=== PATIENT | female | born 1990 | race Caucasian/White ===

== ENCOUNTER → 2016-10-29 | Outpatient (REF) | payer BC ==
[~2016-10-29] MED LIST: ACET50TA PO; MOTR200T44 PO; PREN1TAB11 PO
== END ==
LOC: M LAB REF 17:09
PROVIDERS: ATTEND Physician Assistant
DX: Z00.00 Encounter for general adult medical examination without abnormal findings (principal); Z23 Encounter for immunization

== ENCOUNTER → 2017-05-19 | Outpatient (REF) | payer BC | LOC: M LAB REF 09:35 | DX: J02.9 Acute pharyngitis, unspecified (principal) | CPT/HCPCS: 87081 ==

== ENCOUNTER 2020-04-03 22:37 | Emergency (ER) | payer BC, OTHER ==
[~2020-04-03] VITALS: Ht 157.5 cm; Wt 82.3 kg
[~2020-04-03 22:37] MED LIST changes: -ACET50TA PO; +MAPA500T2 PO
[2020-04-04 00:11] LABS: BASO % 0.8 % (0.0-1.0); EOS # 0.2 10^3/uL (0.0-0.5); EOS % 3.6 % (0.0-3.0); HEMATOCRIT 39.1 % (36.0-47.0); HEMOGLOBIN 12.6 g/dl (12.0-15.5); MEAN CORPUSCULAR HEMOGLOBIN 30.7 pg (27.0-33.0); MEAN CORPUSCULAR HGB CONC 32.2 g/dl (32.0-36.5); MEAN CORPUSCULAR VOLUME 95.4 fl (80.0-96.0); MONO # 0.3 10^3/uL (0.0-0.8); MONO % 6.5 % (0.0-5.0); NEUTROPHILS # 3.7 10^3/uL (1.5-8.5); NEUTROPHILS % 69.2 % (36.0-66.0); PLATELET COUNT, AUTOMATED 220 10^3/uL (150-450); WHITE BLOOD COUNT 5.3 10^3/uL (4.0-10.0)
[2020-04-04 00:30] VITALS: BP 118/68
[2020-04-04 00:30] LABS: BLOOD UREA NITROGEN 11 MG/DL (7-18); CALCIUM LEVEL 9.1 MG/DL (8.5-10.1); CARBON DIOXIDE LEVEL 30 MEQ/L (21-32); CHLORIDE LEVEL 108 MEQ/L (98-107); CK-MB VALUE MASS < 1.0 NG/ML (<3.6); CPK CREATINE PHOSPHOKINASE 47 U/L (26-192); CREATININE FOR GFR 0.75 MG/DL (0.55-1.30); GLOMERULAR FILTRATION RATE > 60.0 (>60); GLUCOSE, FASTING 126 MG/DL (70-100); HCG, SERUM QUANTITATIVE < 1.0 MIU/ML; MB/CK RELATIVE INDEX 2.13 (< OR =4); POTASSIUM SERUM 4.2 MEQ/L (3.5-5.1); SODIUM LEVEL 142 MEQ/L (136-145); TROPONIN I < 0.02 NG/ML (< 0.10)
--- NOTE | 2020-04-04 09:20 | ECGEPIP ---
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
== END 2020-04-04 00:50 | disposition home or self-care (01) ==
LOC: M ED 22:37
DX: I49.3 Ventricular premature depolarization (principal); R00.2 Palpitations

== ENCOUNTER → 2020-07-14 | Outpatient (REF) | payer OTHER ==
[2020-07-14 13:09] LABS: FREE T4 1.03 NG/DL (0.76-1.46); PROLACTIN 6.6 NG/ML; THYROID STIMULATING HORMONE 1.23 uIU/ML (0.358-3.740)
== END ==
LOC: M PLALAB 10:47
PROVIDERS: ATTEND Advanced Practice Midwife
DX: N64.52 Nipple discharge (principal)
CPT/HCPCS: 36415; 84146; 84439; 84443; 87624; G0123

== ENCOUNTER → 2020-07-28 | Outpatient (CLI) | payer OTHER ==
--- NOTE | 2020-07-28 11:58 | REP ---
INDICATION: N64.52 NIPPLE DISCHARGE. COMPARISON: None TECHNIQUE: Real-time sonographic evaluation of the entire left breast performed. FINDINGS: No discrete cystic or solid nodule is seen in the left breast. In the left axilla there are 2 lymph nodes identified both having a normal morphologic appearance, with echogenic fatty zane, short axis dimension of these lymph nodes is 9 mm and 10 mm. IMPRESSION: BIRADS/ACR category 2, benign. No suspicious cystic or solid nodule in the left breast. Two normal appearing lymph nodes left axilla. RECOMMENDATION: Clinical correlation and follow-up recommended. If there is clinically suspicious nipple discharge, further evaluation with breast MRI would be recommended. <Electronically signed by Paco Keene > 07/28/20 2029
== END ==
LOC: M WHC 10:50
PROVIDERS: ATTEND Advanced Practice Midwife
DX: N64.52 Nipple discharge (principal)

== ENCOUNTER → 2020-09-22 | Outpatient (CLI) | payer OTHER ==
[~2020-09-22] MED LIST changes: +PROHANCE 279.3MG/ML 15ML VIAL As Ordered ONE; +PROHANCE 279.3MG/ML 5ML VIAL As Ordered ONE
--- NOTE | 2020-09-22 15:01 | REP ---
INDICATION: NIPPLE DISCHARGE. Intermittent left breast nipple discharge for the last 8 months. COMPARISON: Comparison left breast sonography July 28, 2020. TECHNIQUE: Three Eva MRI imaging was performed with a dedicated breast coil. Axial, coronal, and sagittal T1 and T2 weighted scans were obtained with and without fat saturation in the usual fashion. The study includes dynamically acquired post gadolinium-enhanced imaging with image subtraction. Maximum intensity projection and multi planar reformation imaging is included as well. This study is interpreted with the aid of [employer], an FDA approved computer aided detection (CAD) software program, on a dedicated breast MRI workstation. The gadolinium enhancement dose is 16 mL of intravenous ProHance. FINDINGS: There is a moderate amount of fibroglandular tissue bilaterally corresponding with the mammographic pattern. There is mild background parenchymal enhancement. There is no evidence of axillary lymphadenopathy or significant breast cystic change. High-resolution pre and post-contrast T1 and T2 weighted scans show no suspicious morphologic abnormality in either breast. Dynamically acquired sequential postcontrast images show no suspicious area of enhancement and washout kinetics in either breast to suggest malignancy. Subtraction images show no additional abnormality. There is no evidence of prominent retroareolar ducts or nipple abnormality. IMPRESSION: BI-RADS category 1 negative bilateral breast MRI findings. <Electronically signed by Crescencio Almanza > 09/22/20 [id number]
== END ==
LOC: M RAD 12:29
PROVIDERS: ATTEND Advanced Practice Midwife
DX: N64.52 Nipple discharge (principal)

== ENCOUNTER → 2020-12-15 | Outpatient (REF) ==
[~2020-12-15] MED LIST changes: -PROHANCE 279.3MG/ML 15ML VIAL As Ordered ONE; -PROHANCE 279.3MG/ML 5ML VIAL As Ordered ONE
== END ==
LOC: M LABSMTC 10:49
PROVIDERS: ATTEND Pediatrics
DX: Z11.52 Encounter for screening for COVID-19 (principal)

== ENCOUNTER → 2021-09-20 | Outpatient (CLI) | payer BC, OTHER | LOC: M PLALAB 08:21 | PROVIDERS: ATTEND Advanced Practice Midwife | DX: O03.9 Complete or unspecified spontaneous abortion without complication (principal) ==

== ENCOUNTER → 2022-03-28 | Outpatient (REF) ==
[2022-03-28 13:15] LABS: RSV AMPLIFICATION NEGATIVE (NEGATIVE)
== END ==
LOC: M LABSMTC 10:05
PROVIDERS: ATTEND Family Medicine
DX: Z11.52 Encounter for screening for COVID-19 (principal)

== ENCOUNTER → 2022-04-03 | Outpatient (CLI) | payer BC | LOC: M LAB 07:20 | PROVIDERS: ATTEND Advanced Practice Midwife | DX: N96 Recurrent pregnancy loss (principal) ==

== ENCOUNTER → 2022-04-05 | Outpatient (CLI) | payer BC | LOC: M LAB 09:47 | PROVIDERS: ATTEND Advanced Practice Midwife | DX: O03.9 Complete or unspecified spontaneous abortion without complication (principal) ==

== ENCOUNTER → 2022-04-18 | Outpatient (CLI) | payer BC ==
[2022-04-18 10:37] LABS: HEMATOCRIT 32.8 % (36.0-47.0); HEMOGLOBIN 10.9 g/dl (12.0-15.5); MEAN CORPUSCULAR HEMOGLOBIN 31.4 pg (27.0-33.0); MEAN CORPUSCULAR HGB CONC 33.2 g/dl (32.0-36.5); MEAN CORPUSCULAR VOLUME 94.5 fl (80.0-96.0); PLATELET COUNT, AUTOMATED 201 10^3/uL (150-450); RED BLOOD COUNT 3.47 10^6/uL (4.00-5.40); WHITE BLOOD COUNT 5.1 10^3/uL (4.0-10.0)
[2022-04-18 12:31] LABS: HIV 1&2 SCREEN CENTAUR NEGATIVE (NEGATIVE)
[2022-04-18 12:40] LABS: HEPATITIS C VIRUS ABY INDEX 0.1 INDEX (<0.8)
== END ==
LOC: M PLALAB 08:20
PROVIDERS: ATTEND Advanced Practice Midwife
DX: Z34.81 Encounter for supervision of other normal pregnancy, first trimester (principal)

== ENCOUNTER → 2022-05-18 | Outpatient (CLI) | payer BC ==
[2022-05-18 15:08] LABS: GC DNA AMPLIFICATION NEGATIVE (NEGATIVE)
== END ==
LOC: M PLALAB 10:24
PROVIDERS: ATTEND Advanced Practice Midwife
DX: Z34.81 Encounter for supervision of other normal pregnancy, first trimester (principal)

== ENCOUNTER → 2022-07-09 | Outpatient (CLI) | payer BC | LOC: M RAD 10:16 | PROVIDERS: ATTEND Advanced Practice Midwife | DX: O09.291 Supervision of pregnancy with other poor reproductive or obstetric history, first trimester (principal) ==

== ENCOUNTER → 2022-09-12 | Outpatient (CLI) | payer BC ==
[2022-09-12 15:50] LABS: HEMATOCRIT 33.3 % (36.0-47.0); HEMOGLOBIN 11.1 g/dl (12.0-15.5); MEAN CORPUSCULAR HEMOGLOBIN 33.4 pg (27.0-33.0); MEAN CORPUSCULAR HGB CONC 33.3 g/dl (32.0-36.5); MEAN CORPUSCULAR VOLUME 100.3 fl (80.0-96.0); PLATELET COUNT, AUTOMATED 214 10^3/uL (150-450); RED BLOOD COUNT 3.32 10^6/uL (4.00-5.40); WHITE BLOOD COUNT 7.1 10^3/uL (4.0-10.0)
== END ==
LOC: M PLALAB 11:24
PROVIDERS: ATTEND Advanced Practice Midwife
DX: O26.22 Pregnancy care for patient with recurrent pregnancy loss, second trimester (principal)

== ENCOUNTER → 2022-11-01 | Outpatient (REF) | payer BC | LOC: M SFHCWAGY 10:07 | PROVIDERS: ATTEND Advanced Practice Midwife | DX: O26.23 Pregnancy care for patient with recurrent pregnancy loss, third trimester (principal) ==

== ENCOUNTER 2022-11-27 21:14 | Inpatient (IN) | payer BC ==
[~2022-11-27] VITALS: Ht 157.5 cm; Wt 84.5 kg
[2022-11-27] MEDS ORDERED: LR 1,000 ML IV SCH (21:20)
[2022-11-27] MEDS ORDERED: TRANEXAMIC ACID INJection 1,000 MG in NS 100 ML IV PRN (21:20)
[2022-11-27] MEDS ORDERED: METHYLERGONOVINE MALEATE 0.2MG/ML 1ML VIAL IM PRN (21:20)
[2022-11-27] MEDS ORDERED: LIDOCAINE 1% MDV 20ML VIAL INFIL PRN (21:20)
[2022-11-27] MEDS ORDERED: OXYTOCIN INJ 10UNITS/ML 1ML VIAL IM PRN (21:20)
[2022-11-27] MEDS ORDERED: LACTATED RINGER'S 1000 ML IV ONE (21:20)
[2022-11-27] MEDS ORDERED: OXYTOCIN DRIP 30 UNITS in IV 1 EA IV SCH (21:20)
[2022-11-27] MEDS ORDERED: CARBOPROST TROMETHAMINE 250 MCG/ML AMP IM PRN (21:20)
[2022-11-27] MEDS ORDERED: OXYTOCIN DRIP 30 UNITS in IV 1 EA IV PRN (21:20)
[2022-11-27 22:28] VITALS: BP 112/67
[2022-11-27 22:56] LABS: HEMATOCRIT 34.3 % (36.0-47.0); HEMOGLOBIN 11.9 g/dl (12.0-15.5); MEAN CORPUSCULAR HEMOGLOBIN 33.1 pg (27.0-33.0); MEAN CORPUSCULAR HGB CONC 34.7 g/dl (32.0-36.5); MEAN CORPUSCULAR VOLUME 95.5 fl (80.0-96.0); PLATELET COUNT, AUTOMATED 214 10^3/uL (150-450); RED BLOOD COUNT 3.59 10^6/uL (4.00-5.40); WHITE BLOOD COUNT 9.2 10^3/uL (4.0-10.0)
[2022-11-27 23:01] VITALS: BP 123/69
[2022-11-27 23:32] VITALS: BP 118/68
[2022-11-28] VITALS (35 sets, daily range): BP systolic 90–126; BP diastolic 47–75; O2SAT 98
[2022-11-28] MEDS ORDERED: UNRESOLVED CLARIFICATION ENTRY XX SCH (00:01)
[2022-11-28] MEDS ORDERED: LR 500 ML IV PRN (02:05)
[2022-11-28] MEDS ORDERED: ONDANSETRON 4MG 2ML VIAL IV PRN (02:05)
[2022-11-28] MEDS ORDERED: EPIDURAL/PCA KEYS XX PRN (02:05)
[2022-11-28] MEDS ORDERED: ePHEDrine SULFATE 25 MG/5 ML(5MG/ML) SYRINGE IVP PRN (02:05)
[2022-11-28] MEDS ORDERED: diphenhydrAMINE 50MG/ML VIAL IV PRN (02:05)
[2022-11-28] MEDS ORDERED: NALOXONE INJ 0.4MG/1ML VIAL IV PRN (02:05)
[2022-11-28] MEDS ORDERED: FENTANYL/ROPIVACAINE/NACL BAG 100 ML EPIDURAL SCH (02:05)
[2022-11-28] MEDS ORDERED: MOM 30ML SUSPENSION UDC PO PRN (07:05)
[2022-11-28] MEDS ORDERED: ANUSOL HC CREAM 30GM TOP PRN (07:05)
[2022-11-28] MEDS ORDERED: IBUPROFEN 600MG TAB PO PRN (07:05)
[2022-11-28] MEDS ORDERED: ACETAMINOPHEN TAB 650MG DOSE (2X325MG) PO PRN (07:05)
[2022-11-28] MEDS ORDERED: RHOGAM 300MCG (1500IU) INJ IM SCH (07:05)
[2022-11-28] MEDS ORDERED: DIBUCAINE 1% OINTMENT 30GM TOP PRN (07:05)
[2022-11-28] MEDS: PRENATAL VITAMINS CHEWABLE TABLET PO SCH (07:42)
[2022-11-28] MEDS: ACETAMINOPHEN 500 MG TAB PO PRN ×2 (07:42→14:30)
[2022-11-28] MEDS ORDERED: AMPICILLIN SOD/SULBACTAM SOD 3 GM in D5W MINI-BAG PLUS 100 ML IV ONE (08:00)
[2022-11-28] MEDS ORDERED: FERR325T3 PO ×2 (12:31→13:18)
[2022-11-28] MEDS ORDERED: HOME MED LIST COMPLETE! XX SCH (12:35)
[2022-11-28] MEDS: DOCUSATE SODIUM 100MG CAPSULE PO PRN (18:01)
[2022-11-28] MEDS: IBUPROFEN 800 MG TAB PO PRN (21:02)
[2022-11-29] MEDS: ACETAMINOPHEN 500 MG TAB PO PRN ×2 (00:38→07:51)
[2022-11-29] MEDS: IBUPROFEN 800 MG TAB PO PRN (05:34)
[2022-11-29 06:00] VITALS: BP 139/77; O2SAT 99
[2022-11-29] MEDS: DOCUSATE SODIUM 100MG CAPSULE PO PRN (07:50)
[2022-11-29] MEDS: PRENATAL VITAMINS CHEWABLE TABLET PO SCH (07:50)
[2022-11-29] MEDS ORDERED: COLA100C5 PO (10:54)
[2022-11-29] MEDS ORDERED: ACET-683 PO (10:54)
[2022-11-29] MEDS ORDERED: IBUP-1022 PO (10:54)
[2022-11-30] MEDS ORDERED: MEASLES,MUMPS,RUBELLA VACCINE INJ (MMR-II) SC.IMMUN ONE (09:00)
== END 2022-11-29 15:11 | disposition home or self-care (01) | DRG 541 ==
LOC: M LDI 21:14 → M OBS 11-28 08:50
PROVIDERS: ADMIT Advanced Practice Midwife; ATTEND Advanced Practice Midwife
PROC: 0KQM0ZZ Repair Perineum Muscle, Open Approach (ICD-10-PCS; 2022-11-27)
PROC: 3E033VJ Introduction of Other Hormone into Peripheral Vein, Percutaneous Approach (ICD-10-PCS; 2022-11-27)
PROC: 10907ZC Drainage of Amniotic Fluid, Therapeutic from Products of Conception, Via Natural or Artificial Opening (ICD-10-PCS; 2022-11-27)
PROC: 10E0XZZ Delivery of Products of Conception, External Approach (ICD-10-PCS; principal; 2022-11-28)
PROC: 10D17Z9 Manual Extraction of Products of Conception, Retained, Via Natural or Artificial Opening (ICD-10-PCS; 2022-11-28)
DX: O72.0 Third-stage hemorrhage (principal); O70.1 Second degree perineal laceration during delivery; Z3A.39 39 weeks gestation of pregnancy; Z37.0 Single live birth

== ENCOUNTER → 2023-05-11 | Outpatient (REF) | payer BC ==
[~2023-05-11] MED LIST changes: +ACET-683 PO; +BACTDSTA; +CLEO300C2 PO; +COLA100C5 PO; +DOXY-443 PO; +FERR325T3 PO; +IBUP-1022 PO
== END ==
LOC: EEVIPCON 17:18 → M LAB REF 17:18
PROVIDERS: ATTEND Physician Assistant
DX: L02.419 Cutaneous abscess of limb, unspecified (principal)

== ENCOUNTER 2023-05-14 05:36 | Emergency (ER) | payer BC ==
[~2023-05-14] VITALS: Ht 157.5 cm; Wt 79.4 kg
[~2023-05-14 05:36] MED LIST changes: -BACTDSTA; -CLEO300C2 PO; -DOXY-443 PO
[2023-05-14] MEDS ORDERED: BACTDSTA (05:42)
[2023-05-14] MEDS ORDERED: LIDOCAINE W/EPINEPHRINE 1% 20ML VIAL SC ONE (11:25)
[2023-05-14 11:42] VITALS: BP 125/69; TEMP 97.8; O2SAT 99
[2023-05-14] MEDS ORDERED: DOXY-443 PO (12:26)
[2023-05-14] MEDS ORDERED: CLEO300C2 PO (13:59)
== END 2023-05-14 12:36 | disposition home or self-care (01) ==
LOC: M ED 05:36
DX: L02.414 Cutaneous abscess of left upper limb (principal); L03.114 Cellulitis of left upper limb

== ENCOUNTER → 2023-07-19 | Outpatient (REF) | payer OTHER ==
[~2023-07-19] MED LIST changes: +BACTDSTA; +CLEO300C2 PO; +DOXY-443 PO
== END ==
LOC: M PLALAB 10:05
PROVIDERS: ATTEND Advanced Practice Midwife
DX: Z01.419 Encounter for gynecological examination (general) (routine) without abnormal findings (principal); Z11.51 Encounter for screening for human papillomavirus (HPV)
CPT/HCPCS: 87624; G0123